=== PATIENT | female | born 2000 | race Caucasian/White ===

== ENCOUNTER 2025-04-23 22:41 | Emergency (ER) | payer OTHER, SELFPAY ==
--- NOTE | ~2025-04-23 | US_ITS ---
US OB <= 14 weeks fetus Ordering provider: Yohannes Patino MD History: . threatened miscarriage . Comparison: None. Technique: Transabdominal ultrasound of the pelvis (Doppler ultrasound interrogation techniques used as needed for this exam.) FINDINGS: CERVIX: Normal. UTERUS: Measures 9.8x 6.3x 8.4 cm in length which is within normal limits and is anteverted. No myom etrial masses. ENDOMETRIUM: Thickened complex endometrium with no gestational sac or pole. CUL DE SAC: No free fluid. RIGHT OVARY: Normal in size measuring 3.6x 2.8x 2.3 cm. Normal echotexture. Doppler vascular flow pre sent. LEFT OVARY: Normal in size measuring 4.5x 2x 3.5 cm. Normal echotexture. Doppler vascular flow presen t. ADNEXA: Normal. No mass. IMPRESSION: Thickened complex endometrium with no gestational sac or pole. The differential includes missed versus early . Clinical and B units correlation advised. Otherwise, normal pelvic ultrasound. Reviewed, dictated and finalized at location A. IMPRESSION: Thickened complex endometrium with no gestational sac or pole. The differ ential includes missed versus early . Clinical and B units correlation advised. Otherwise, normal pelvic ultrasound.
--- NOTE | 2025-04-23 22:50 | PC.NURSE ---
Pt. to ultrasound.
[2025-04-23 23:12] VITALS: BP 105/70; PULSE 83; RESP 16; TEMP 36.9; O2SAT 99
--- OUTSIDE RECORDS SUMMARY | 2025-04-23 23:28 | XMS_ITS | Referral Summary ---
Author Organization [facility] Address [address] [place] [address] Care Team Providers Care Medical Device Assembler Name Role Phone Paxton Mercado MD, Rogelio Veronica Primary Care Provid er Cody Aquino MD Unavailable [phone] Allergies No known active allergies Medications meclizine (ANTIVERT) 25 mg tablet Take 1 tablet (25 mg total) by mouth 3 (three) times a day as needed for dizziness 30 tablet 1 Active methocarbamoL (ROBAXIN) 500 mg tablet Take 1 tablet (500 mg total) by mouth nightly 30 tablet 1 1 Active celecoxib (CeleBREX) 100 mg capsule TAKE 1 CAPSULE(100 MG) BY MOUTH DAILY 30 capsule 1 2 Active gabapentin (NEURONTIN) 100 mg capsule TAKE 2 CAPSULES(200 MG) BY MOUTH EVERY NIGHT 60 capsule 3 3 Active Active Problems Problem Noted Date Diagnosed Date Rash and nonspecific skin eruption 11/29/2022 Assessment & Plan (11/29/2022 9:44 AM EMERGENCY CARE TECH): Recommend dermatology appointment for scaling within scalp. She has tried otc shampoos and topicals but continues to have burning sensation with flaking. Chronic back pain 01/12/2022 Overview (11/30/2022): 04/2022 labs: AVISE c1q21 (low+), C3 90, C4 14 01/12/2022 labs: C3 74, C4 12, normal Pr:Cr, trace blood in UA, neg HLA-B27, neg AVISE 11/2022 XR: -Lspine: DDD at L5-S1 -SI joints: narrowing bilateral SI joints without inflammatory changes Assessment & Plan (11/29/2022 9:43 AM EMERGENCY CARE TECH): Notes improvement in low back pain with starting gabapentin. Has not obtain previous xrays or gone to PT. Still with ttp of lower lumbar region. Encouraged her to obtain Xrays at minimal to have baseline imaging - still question possible GI mediated vs spondyloarthritis inflammatory back pain, joseph with scaling present within scalp. She may benefit with PT as well. Assessment & Plan (08/02/2022 2:44 PM CDT): Joint symptoms unchanged - right lower back pain still present questionably radiating around right aside of abdomen. Hands/feet ache. No benefit with celebrex 100mg nightly. Reports continued poor sleep. Saw GI with colonoscopy that was reportedly normal and diagnosed with IBS. Did not obtain XRs from last visit. No synovitis on exam with ttp over right SI/iliac crest region. Will reprint orders for lumbar and SI joint imaging. Discussed that obtaining an MRI of her lumbar spine would not be possible without first obtaining x-rays and going to PT - she agreed to try PT. Return in 4 months. Sooner if needed. Seen with Dr. Aquino. Assessment & Plan (01/12/2022 12:30 PM EMERGENCY CARE TECH): Continues to have right midback pain that worsens with any activity. Unable to describe symptoms well - poor historian of timeline of symptoms/events and descriptive adjectives. Also reports continuation of intermittent episodes of blood in her stool with chronic diarrhea. Unable to see the GI doctor due to an illness. There is ttp of the right SI joint and right upper midback over the paraspinal muscles that wraps anteriorly to the RLQ. Minimal scattered joint tenderness on exam without obvious synovitis. Does have pain at the origin of the left plantar fascia. There is a potential she could have an IBD vs spondyloarthritis given the back pain and GI symptoms, although her back pain does not sound inflammatory in nature. Does not appear to have a CTD such as lupus based on prior negative serologies and lack of synovitis/concerning symptoms. Has not started PT and would recommend for back pain. Will recheck appropriate serologies and lumbar spine/SI joint radiographs. Discussed potentially trying celebrex 100mg once daily for joint pain but cautioned with her GI symptoms she may discontinue if it upsets her stomach or worsens symptoms. Will provide plantar fasciitis stretching exercises. Would also recommend increasing Tylenol to 1300mg BID. Return in [address] Aquino. Dyspnea 01/12/2022 Assessment & Plan (01/12/2022 12:28 PM EMERGENCY CARE TECH): Easily becomes short of breath with simply activities. No longer running. Will obtain PFTs for further evaluation. Abdominal bloating associated with menstruation 09/30/2021 Assessment & Plan (09/30/2021 9:43 PM EMERGENCY CARE TECH): Worsening symptoms of abdominal bloating/pressure with her menstrual cycle. Does not have a Senior Wind Turbine Technician and is not on a control medication. She has an identical sister with PCOS. Provided name of Senior Wind Turbine Technician practice for patient to call. Dizziness 08/05/2021 Assessment & Plan (09/30/2021 9:38 PM EMERGENCY CARE TECH): Notes vertigo symptoms resolved after use of meclizine. Did not go to ENT. Assessment & Plan (08/05/2021 8:19 PM CDT): Reports new onset dizziness starting last with no viral prodrome.Any rapid movement of head induced her symptoms. At that time she was taking 60mg cymbalta but had stopped flexeril. Experienced multiple episodes of emesis Tuesday and stopped cymbalta as she could not eat. Did not seek UC or ER. Called PCP and was advised to follow up with network account manager (?) - no anti-emetic was sent in. Negative Almas Hallpike on exam. Cannot rule out vestibular cause of her dizziness. Will send in 25mg meclizine TID prn at this time to help with symptom control. Recommend ENT for further work up and will provide PT vestibular rehab referral as well. Provided orders for basic labs to ensure no dehydration/inflammatory issues present. These symptoms are not related to her fibromyalgia. Fibromyalgia 04/27/2021 Overview (05/06/2021): 04/2021 labs: AVISE C1q 21 (low+), C3 90, C4 14 Assessment & Plan (11/29/2022 9:41 AM EMERGENCY CARE TECH): Began 100mg gabapentin qhs after last visit with initial improvement in sleep but notes this has worsened again. Does report decreased daytime myalgia and back pain has lessened with use of gabapentin. Tried/failed cymbalta, amitriptyline and methocarbamol. Memory/brain fog is terrible. Still with 9/18 FM trigger points on exam. Will have her increase to 200mg gabapentin qhs and call in 4 weeks with update in symptoms. Will avoid daytime dose at this time. Assessment & Plan (08/02/2022 2:41 PM CDT): Tried/failed cymbalta, amitriptyline and methocarbamol. Memory/brain fog is terrible. 9/18 FM trigger points on exam. Discussed trial of low dose 100mg gabapentin qhs and reviewed the potential side effects of the medication, including but not limited to somnolence, dizziness. She was amenable to trying the medication. Will send to pharmacy. Assessment & Plan (09/30/2021 9:41 PM EMERGENCY CARE TECH): Reports worsening myalgias/arthralgias. Taking 600-800mg ibuprofen/advil up to TID without noted benefit. Headaches worsening. Would like to restart cymbalta 30mg as she felt her symptoms were better controlled. 17/18 FM trigger points present on exam. Will restart cymbalta 30mg once daily in the AM x 7-10 days and if tolerating and able to sleep will go to BID dosing. Provided PT referral for fibromyalgia pain program and encouraged her to inquire about using a TENs unit. Will also send in 500mg methocarbamol qhs due to nightly muscle spasms and difficulty sleeping. Would still recommend follow up with neurology for various symptoms. Return in [address] Aquino. Assessment & Plan (08/05/2021 8:45 PM CDT): Reports no benefit with flexeril 10mg qhs. Did notice improvement in joint symptoms on 60mg cymbalta (she was increased 2 weeks ago from 30mg daily) but reports increased difficulty falling asleep despite switching to AM dosing. Continues to have moderate myalgia complaints and recurrent flares of fatigue, chills, diffuse pain. Would not recommend pursuing another fibromyalgia medication at this time until her current dizziness is resolved as most medications have a potential side effect of dizziness. In the future would consider amitriptyline 10mg qhs and a referral to sleep specialist. Assessment & Plan (05/07/2021 1:02 PM CDT): Ms. Hoyt is a 20yo female with PMH of meningitis (2017) who presents for further evaluation of her right lower back pain worsening over past 6 months. Pain occurs episodically, lasting 4-5 days with 2-3 weeks of relatively normal symptoms in between the flares. During these flares she has moderate fatigue complaints. Also notes migrating peripheral joint pain that lasts for a few hours before resolving. Denies joint stiffness or swelling. Minimal benefit with NSAIDs and heat worsens back pain. Reports occasional rashes, watery eyes, whitening of the fingers in winter, aphthous ulcers, diarrhea 2x/week with intermittent blood present and migraines. No contributory FH aside from paternal GM and great GM with fibromyalgia. A recent autoantibody panel was negative for ENE, RF, CCP, Scl70. Multiple tender points on exam without synovitis. She did not have a scl70 antibody present on repeat testing and does not have symptoms concerning for scleroderma. At this time her symptoms of brain fog, diffuse tenderness, migraines, GI symptoms and moderate-severe fatigue along with her physical exam findings correlate more with a fibromyalgia diagnosis. Discussed initiating cymbalta 30mg once daily to see if she has any benefit over time and reviewed the potential adverse effects of the medication including, but not limited to, nausea, sicca sx, headache, somnolence, and/or fatigue. Recommended she follow up with her PCP within the next 4-6 weeks for continued management. She may require the full 60mg once daily dose. She should continue flexeril qhs, with increase to 10mg as 5mg was not offering any benefit. Additionally discussed the importance of good restorative sleep and exercise. Fibromyalgia treatment is multifaceted and medication alone may not be sufficient to control symptoms. Provided handout reviewing the diagnosis as well as Mendel Chi. She is welcome to return if she develops any additional symptoms concerning for an autoimmune disease - explained that a one time work up does not exclude a future autoimmune disease. Seen with Dr. Aquino. Assessment & Plan (04/27/2021 9:03 PM CDT): Ms. Hoyt is a 20yo female with PMH of meningitis (2017) who presents for further evaluation of her right lower back pain worsening over past 6 months. Pain occurs episodically, lasting 4-5 days with 2-3 weeks of relatively normal symptoms in between the flares. During these flares she has moderate fatigue complaints. Also notes migrating peripheral joint pain that lasts for a few hours before resolving. Denies joint stiffness or swelling. Minimal benefit with NSAIDs and heat worsens back pain. Reports occasional rashes, watery eyes, whitening of the fingers in winter, aphthous ulcers, diarrhea 2x/week with intermittent blood present and migraines. No contributory FH aside from paternal GM and great GM with fibromyalgia. No synovitis on exam with ttp of the left elbow and ankle and ttp of the right flank region. Do not suspect her +scl70 lab is contributing to her current symptoms and she does not appear to have symptoms concerning for scleroderma. However will perform appropriate serologies for further assessment. There is some mild concern for early development of fibromyalgia. Suggested a trial of 5mg flexeril qhs for lower back pain and patient was amenable. - will send script to pharmacy. Return in [address] Aquino. Memory impairment 07/12/2017 Cephalalgia 07/12/2017 Fatigue 07/12/2017 Chronic pain 07/12/2017 Headache following lumbar puncture 07/05/2017 Social History Tobacco Use Types Packs/Day Years Used Date Smoking Tobacco: Never Personal Safety Answer Date Recorded Getting School Help Needed Not on file 01/08 Comments Unknown Sex and Gender Information Value Date Recorded Sex Assigned at Not on file Legal Sex Female 1:29 AM EMERGENCY CARE TECH Gender Identity Not on file Sexual Orientation Not on file Last Filed Vital Signs Vital Sign Reading Time Taken Comments Blood Pressure 110/68 11/29/2022 8:55 AM EMERGENCY CARE TECH Pulse 89 11/29/2022 8:55 AM EMERGENCY CARE TECH Temperature 36.7 C (98.1 F) 01/12/2022 8:35 AM EMERGENCY CARE TECH Respiratory Rate - - Oxygen Saturation 98% 11/29/2022 8:55 AM EMERGENCY CARE TECH Inhaled Oxygen Concentration - - Weight 51 kg (112 lb 6.4 oz) 11/29/2022 8:55 AM EMERGENCY CARE TECH Height 154.9 cm (5' 1) 11/29/2022 8:55 AM EMERGENCY CARE TECH Body Mass Index 21.24 11/29/2022 8:55 AM EMERGENCY CARE TECH Plan of Treatment Not on file Insurance ANTHEM ACCESS CHOICE [facility] CHOICE PLUS ANTHEM ACCESS CHOICE Care Teams Medical Device Assembler Relationship Specialty Start [place] [id number] [address] [address] PCP - General Family Medicine 04/15/21 Cody Aquino MD [address] [place] [address] Consulting Physician Rheumatology 04/15/21
--- OUTSIDE RECORDS SUMMARY | 2025-04-23 23:28 | XMS_ITS | Encounter Summary ---
Author Organization [facility] Address [address] [place] [address] Care Team Providers Care Professor Of Biological Sciences Name Role Phone Mikael Molina MD Primary Care Provider [phone] Encounter Details Date Type Department Care Team (Late st Contact Info) Description 01/06/2022 Telephone [facility] [address] [place] [address] Arnold Wang MD [facility] [address] Social History Tobacco Use Types Packs/Day Years Used Date Smoking Tobacco: Never Smokeless Tobacco: Never Alcohol Use Standard Drinks/Week Comments Not Currently 0 (1 standard drink = 0.6 oz pur e alcohol) Comments No Sex and Gender Information Value Date Recorded Sex Assigned at Not on file Legal Sex Female 2:37 PM CRM TECHNICAL LEAD Gender Identity Not on file Sexual Orientation Not on file documented as of this encounter Miscellaneous Notes * Telephone Encounter - Nayeli Antunez - 01/06/2022 9:55 AM CST Current Provider name:SUN Reason for call: Pt would like to switch provider's. She no longer wants to be seen by Dr. Wang. Patient Call Back number: [phone] TECHNICAL LEAD documented in this encounter Plan of Treatment Not on file documented as of this encounter Visit Diagnoses Not on filedocumented in this encounter Care Teams Professor Of Biological Sciences Relationship Specialty Start Date End Date Mikael Molina MD PCP - General 09/25/19 documented as of this encounter
--- OUTSIDE RECORDS SUMMARY | 2025-04-23 23:29 | XMS_ITS | Clinical Summary ---
Author Organization [facility] Address [address] [place] [address] Care Team Providers Care Home Stereo Equipment Installer Name Role Phone Paxton Mercado MD, Rogelio Veronica Primary Care Provid er Cody Aquino MD Unavailable [phone] Allergies No known active allergies Medications [...] 11/29/2022 Assessment & Plan (11/29/2022 9:44 AM TOWERMAN): Recommend dermatology appointment for scaling within scalp. [...] changes Assessment & Plan (11/29/2022 9:43 AM TOWERMAN): Notes improvement in low back pain with [...] Aquino. Assessment & Plan (01/12/2022 12:30 PM TOWERMAN): Continues to have right midback pain that [...] 01/12/2022 Assessment & Plan (01/12/2022 12:28 PM TOWERMAN): Easily becomes short of breath with simply activities. No longer running. Will obtain PFTs for further evaluation. Abdominal bloating associated with menstruation 09/30/2021 Assessment & Plan (09/30/2021 9:43 PM TOWERMAN): Worsening symptoms of abdominal bloating/pressure with her menstrual cycle. Does not have a Autocutter and is not on a control medication. She has an identical sister with PCOS. Provided name of Autocutter practice for patient to call. Dizziness 08/05/2021 Assessment & Plan (09/30/2021 9:38 PM TOWERMAN): Notes vertigo symptoms resolved after use of [...] and was advised to follow up with petrophysicist (?) - no anti-emetic was sent in. [...] 14 Assessment & Plan (11/29/2022 9:41 AM TOWERMAN): Began 100mg gabapentin qhs after last visit [...] pharmacy. Assessment & Plan (09/30/2021 9:41 PM TOWERMAN): Reports worsening myalgias/arthralgias. Taking 600-800mg ibuprofen/advil up [...] pain 07/12/2017 Headache following lumbar puncture 07/05/2017 Medical History Medical History Date Comments Anorexia Poor appetite - (Added by TW Conv) Chest pain on breathing Painful breathing - (Added by TW Conv) Shortness of breath Shortness of breath at rest - (Added by TW Conv) Personal history of other di seases of the musculoskeletal system and connective tissue History of muscle pain - (Ad ded by TW Conv) Personal history of other sp ecified conditions History of weakness - (Added by TW Conv) Family History Medical History Relation Name Comments Irritable bowel syndrome Brother Fam donovan history of irritable bowel syndrome - (Added by TW Conv) Colon cancer Father Family history of colorectal cancer - (Added by TW Conv) Lung cancer Maternal Grandfather Family history of lung cancer - (Added by TW Conv) Thyroid disease Maternal Grandfather Fami ly history of thyroid disease - (Added by TW Conv) Diabetes Maternal Grandmother Family history of diabetes mellitus - (Added by TW Conv) Thyroid disease Maternal Grandmother Fami ly history of thyroid disease - (Added by TW Conv) Hyperlipidemia Paternal Grandfather Famil y history of hyperlipidemia - (Added by TW Conv) Hypertension Paternal Grandfather Family history of hypertension - (Added by TW Conv) Relation Name Status Comments Brother Father Maternal Grandfather Maternal Grandmother Paternal Grandfather Social History Tobacco Use Types Packs/Day Years Used Date Smoking Tobacco: Never Personal Safety Answer Date Recorded Getting School Help Needed Not on file 01/08 Comments Unknown Sex and Gender Information Value Date Recorded Sex Assigned at Not on file Legal Sex Female 1:29 AM TOWERMAN Gender Identity Not on file Sexual Orientation Not on file Obstetrics History Last Filed Vital Signs Vital Sign Reading Time Taken Comments Blood Pressure 110/68 11/29/2022 8:55 AM TOWERMAN Pulse 89 11/29/2022 8:55 AM TOWERMAN Temperature 36.7 C (98.1 F) 01/12/2022 8:35 AM TOWERMAN Respiratory Rate - - Oxygen Saturation 98% 11/29/2022 8:55 AM TOWERMAN Inhaled Oxygen Concentration - - Weight 51 kg (112 lb 6.4 oz) 11/29/2022 8:55 AM TOWERMAN Height 154.9 cm (5' 1) 11/29/2022 8:55 AM TOWERMAN Body Mass Index 21.24 11/29/2022 8:55 AM TOWERMAN Plan of Treatment Health Maintenance Due Date Last Done Comments Cervical Cancer Screening 1998 Depression Screening 1998 Hepatitis C Screening 1998 Varicella Vaccines (2 of 2 - 2-dose childhood series) 09/02/2009 02/01/2000 DTaP/Tdap/Td Vaccine (2 - Tdap) 2009 2 HPV Vaccines (1 - 3-dose series) 2013 Regular Well Visit/Exam 18-64 2016 Influenza Vaccine (Season Ended) 2025 08/05/20 09 Hepatitis B Screening Completed 09/25/2002 Pneumococcal vaccine <65 Aged Out No longer eligible based on patient's age to complete this topic Insurance ANTHEM ACCESS CHOICE [facility] CHOICE PLUS ANTHEM ACCESS CHOICE Care Teams Home Stereo Equipment Installer Relationship Specialty [place] [address] [address] [address] PCP - General Family Medicine 04/15/21 Cody Aquino MD [address] [place] [address] Consulting Physician Rheumatology 04/15/21
--- OUTSIDE RECORDS SUMMARY | 2025-04-23 23:29 | XMS_ITS | Clinical Summary ---
Author Organization [facility] Address [address] [place] [address] Care Team Providers Care Automated Cutting Machine Operator Name Role Phone Mikael Molina MD Primary Care Provider Source Comments [facility],non-owned Affiliates and Associated Physician Practices is amultiple site organization consisting of ambulatory clinics and hospital sitesin [place], [place], [place] and [place]. This disclosure is being madepursuant to the Care Everywhere program and may not contain all information available regarding this patient. Last updated 18.[employer] [facility] Allergies No known active allergies Medications * Be aware that medications may not be up to date on this document. Alwaysverify current medications with the patient. No known medications Active Problems No known active problems Family History Medical History Relation Name Comments Cancer - Colon Father Relation Name Status Comments Father Social History Tobacco Use Types Packs/Day Years Used Date Smoking Tobacco: Never Smokeless Tobacco: Never Alcohol Use Standard Drinks/Week Comments Not Currently 0 (1 standard drink = 0.6 oz pur e alcohol) Comments No Sex and Gender Information Value Date Recorded Sex Assigned at Not on file Legal Sex Female 2:37 PM OUTBOUND TELEMARKETER Gender Identity Not on file Sexual Orientation Not on file Last Filed Vital Signs Vital Sign Reading Time Taken Comments Blood Pressure 100/60 09/28/2020 10:58 AM OUTBOUND TELEMARKETER Pulse 100 09/28/2020 10:58 AM OUTBOUND TELEMARKETER Temperature 37.3 C (99.2 F) 09/28/2020 10:58 AM OUTBOUND TELEMARKETER Respiratory Rate 18 09/28/2020 10:58 AM OUTBOUND TELEMARKETER Oxygen Saturation 97% 09/28/2020 10:58 AM OUTBOUND TELEMARKETER Inhaled Oxygen Concentration - - Weight 49.9 kg (110 lb) 09/28/2020 10:58 AM OUTBOUND TELEMARKETER Height 154.9 cm (5' 1) 09/28/2020 10:58 AM OUTBOUND TELEMARKETER Body Mass Index 20.78 09/28/2020 10:58 AM OUTBOUND TELEMARKETER Plan of Treatment Health Maintenance Due Date Last Done Comments HIV SCREENING 2013 HPV VACCINE (1 - 3-dose series) 2013 HEPATITIS C SCREENING 10/01/2016 DTAP/TDAP/TD VACCINES (1 - Tdap) 2017 HEPATITIS B VACCINE (1 of 3 - 19+ 3-dose series) 2017 COVID-19 VACCINE (1 - 2023-2 5 season) 2024 DEPRESSION SCREENING 11/14/2024 INFLUENZA VACCINE (Season Ended) 2025 ZOSTER VACCINE (1 of 2) 2048 HIB VACCINE Aged Out No longer eligi ble based on patient's age to complete this topic MENINGOCOCCAL (Group B) VACC INE SHARED DECISION-MAKING Aged Out No longer eligibl e based on patient's age to complete this topic MENINGOCOCCAL GROUPS A/C/Y/W VACCINE Aged Out No longer eligible b ased on patient's age to complete this topic PNEUMOCOCCAL VACCINE Aged Out No long er eligible based on patient's age to complete this topic Insurance [facility] Care Teams Automated Cutting Machine Operator Relationship Specialty Start Date End Date Mikael Molina MD PCP - General 09/25/19
--- NOTE | 2025-04-23 23:39 | ED.FEMALEGU ---
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 Patient states that she had an a few days ago and was administered an oral pill which she took yesterday morning and vaginal medication which she took 6 hours later. Patient started bleeding this morning and understands that this is normal as she is passing the products of conceptions, however, her boyfriend prompted her to come to the emergency department for further evaluation. Patient did inform me that she did not tell her boyfriend that she had an and wants to keep this information from him. I did inform her that since these are her wishes I am happy to abide by them. She is unsure of her blood type. Related Data Allergies Allergy/AdvReac Type Severity Reaction Status Date / Time No Known Allergies Allergy Verified 04/23/25 22:43 Review of Systems Review of Systems: All systems are reviewed and are negative unless stated otherwise in the HPI. Exam Narrative: General: Alert, awake, afebrile, in no acute distress. HEENT: PERRL, no rhinorrhea, no post nasal drip, oropharynx clear. Neck: Trachea midline, no JVD, no lymphadenopathy. Cardiovascular: Regular rate and rhythm, no murmurs, rubs or gallops, no peripheral edema. Respiratory: Clear to auscultation bilaterally, no tachypnea, no wheezing, no rhonchi, no rubs, no respiratory distress. Abdomen: Soft, nontender, nondistended, no rebound, no guarding, no peritoneal signs. Musculoskeletal: No joint swelling or deformity, normal muscle tone. Skin: No rashes or petechia, no signs of infection. Psychiatric: Alert and oriented, normal behavior and judgment for situation. Neurological: Alert and oriented to person, place, and time. Follows all commands. No focal deficits, speech is clear and fluent. Course Vital Signs Vital signs: Vital Signs Temperature 98.5 F 04/23/25 23:12 Pulse Rate 83 04/23/25 23:12 Respiratory Rate 16 04/23/25 23:12 Blood Pressure 105/70 04/23/25 23:12 Pulse Oximetry 99 04/23/25 23:12 Oxygen Delivery Room Air 04/23/25 23:12 Temperature 98.5 F 04/23/25 23:12 Pulse Rate 83 04/23/25 23:12 Respiratory Rate 16 04/23/25 23:12 Blood Pressure 105/70 04/23/25 23:12 Pulse Oximetry 99 04/23/25 23:12 Oxygen Delivery Room Air 04/23/25 23:12 MDM - Female Genitourinary MDM Narrative Medical decision making narrative: The patient was evaluated by myself in the emergency department. History is obtained from patient who is an independent historian and physical exam was performed. External medical records were reviewed at this time. IV was established and pertinent tests were ordered. Laboratory results obtained revealing no acute process. Imaging studies obtained included pelvic ultrasound OB with transvaginal which was independently interpreted by me revealing: IMPRESSION: Thickened complex endometrium with no gestational sac or pole. The differential includes missed versus early . Clinical and B units correlation advised. Otherwise, normal pelvic ultrasound. Differential diagnosis considerations include active miscarriage/threatened miscarriage/retained products of conception. Comorbidities impacting this visit include none. I have evaluated and discussed social determinants of health with the patient that could potentially impact subsequent diagnosis and treatment plans. On repeat assessment of the patient, reevaluation revealed that the patient is doing well and is in no acute distress. Patient symptoms have improved since she arrived to our emergency department. Repeat vital signs were all reviewed and noted to be stable. Differential diagnosis and treatment plan were discussed with the patient at bedside. Patient agrees with discussion and after shared medical decision making agrees with discharge. All questions were answered to the patient's satisfaction. Patient will follow up with OB in 3-5 days. Patient was provided with strict return precautions and instructed to return to the emergency department if any new or worsening symptoms develop. The patient was discharged in stable condition. Lab Data 04/23/25 23:50 04/23/25 23:50 Labs: Lab Results 04/23/25 Range/Units 23:50 WBC 10.2 H (4.5-10.0) K/mm3 RBC 4.14 L (4.2-5.4) M/mm3 Hgb 11.7 L (12.0-15.0) g/dL Hct 35.3 L (37.0-47.0) % MCV 85.3 (80-100) fl MCH 28.3 (26-34) pg MCHC 33.1 (32-36) g/dl RDW 12.2 (11.5-14.5) % Plt Count 285 (150-375) k/mm3 MPV 10.0 (7.4-10.4) fl Immature Gran % (Auto) 2.3 H (0-0.5) % Neut % (Auto) 53.3 (45.5-73.1) % Lymph % (Auto) 33.9 (18.3-44.2) % [place] % (Auto) 8.5 (2.6-8.5) % Eos % (Auto) 1.1 (0-4.4) % Baso % (Auto) 0.9 (0.2-1.2) % Lymph # (Auto) 3.46 H (0.9-3.2) K/mm3 [place] # (Auto) 0.9 H (0.1-0.6) K/mm3 Eos # (Auto) 0.1 (0-0.3) K/mm3 Baso # (Auto) 0.1 (0.0-0.1) K/mm3 Abs Immat Gran (auto) 0.23 H (0.00-0.031) K/mm3 Absolute Neuts (auto) 5.5 (1.3-6.7) K/mm3 Absolute Nucleated RBC 0.000 (0.0-0.012) K/mm3 Nucleated RBC % 0.0 (0.0-0.2) % Sodium 134 L (137-145) mmol/L Potassium 3.7 (3.4-5.0) mmol/L Chloride 103 (98-107) mmol/L Carbon Dioxide 27 (22-30) mmol/L Anion Gap 4 (4-12) mmol/L BUN 9 (7-17) mg/dL Creatinine 0.67 L (0.7-1.0) mg/dL Estim Creat Clear Calc 82 ml/min Estimated GFR > 60 (59 - ) Glucose 86 (65-110) mg/dL Calcium 8.9 (8.4-10.2) mg/dL Magnesium 2.0 (1.6-2.3) mg/dL Total Bilirubin 0.5 (0.2-1.3) mg/dL AST 46 H (14-36) U/L ALT 45 H (6-35) U/L Alkaline Phosphatase 43 (38-126) U/L Total Protein 6.6 (6.3-8.2) g/dL Albumin 4.1 (3.5-5.1) g/dL Lipase 129 (23-300) U/L Beta HCG, Quant 46560.00 mIU/ML Urine Color Yellow (Yellow) Urine Appearance Clear (Clear) Urine pH 6.5 (5.0-9.0) Ur Specific [place] 1.021 (1.001-1.035) Urine Protein Trace (Negative) mg/dL Urine Glucose (UA) Negative (Negative) mg/dL Urine Ketones Negative (Negative) mg/dL Ur Blood (Man) 3+ H (Negative) Urine Nitrate Negative (Negative) Urine Bilirubin Negative (Negative) Urine Urobilinogen 1.0 (<2.0) mg/dL Leukocyte Esterase Rfl Trace H (Negative) ANASTASIIA/UL Urine RBC >100 H (0-2) /hpf Urine WBC 6-10 H (0-3) /hpf Ur Squamous Epith Cells None seen (Few) /hpf Urine Bacteria None seen /hpf Urine Casts 0-2 Blood Type O Positive Antibody Screen Negative Screen Not Reportable Baby's Blood Type Not Reportable Baby's JESSICA Not Reportable Doses of RhIg Required 0 Discharge Plan Discharge Clinical Impression: Threatened miscarriage Patient Disposition: Home Condition: Improved Instructions: Antibiotic Form, Threatened Miscarriage (ED) Additional Instructions: Please follow-up with the dental intern provided to you today within the next 3-5 days. Your beta hCG level was today was 33,[phone]. You will need to have your beta hCG level re-checked for monitoring. Return to the emergency department if any new or worsening symptoms develop. Patient Language: Sudanese Follow-up/Referrals: Mono Brink MD [Physician] - 3 Days Time of Disposition: 01:05
[2025-04-24 00:14] LABS: Alanine Aminotransferase 45 U/L (6-35); Albumin Level 4.1 g/dL (3.5-5.1); Alkaline Phosphatase 43 U/L (38-126); Anion Gap 4 mmol/L (4-12); Aspartate Amino Transferase 46 U/L (14-36); Bilirubin,Total 0.5 mg/dL (0.2-1.3); Blood Urea Nitrogen 9 mg/dL (7-17); Calcium 8.9 mg/dL (8.4-10.2); Carbon Dioxide 27 mmol/L (22-30); Chloride 103 mmol/L (98-107); Estimated CRCL calculation 82 ml/min; Estimated Glomerular Filt Rate > 60; Glucose 86 mg/dL (65-110); Lipase 129 U/L (23-300); Potassium 3.7 mmol/L (3.4-5.0); Sodium 134 mmol/L (137-145); Total Protein 6.6 g/dL (6.3-8.2)
[2025-04-24 00:24] LABS: Basophils Absolute Auto 0.1 K/mm3 (0.0-0.1); Basophils Percent Auto 0.9 % (0.2-1.2); Eosinophils Absolute Auto 0.1 K/mm3 (0-0.3); Eosinophils Percent Auto 1.1 % (0-4.4); Hematocrit 35.3 % (37.0-47.0); Hemoglobin 11.7 g/dL (12.0-15.0); Immature Granulocyte Absolute 0.23 K/mm3 (0.00-0.031); Immature Granulocyte Percent A 2.3 % (0-0.5); Lymphocytes Absolute Auto 3.46 K/mm3 (0.9-3.2); Lymphocytes Percent Auto 33.9 % (18.3-44.2); Mean Corpuscular HGB Conc 33.1 g/dl (32-36); Mean Corpuscular Hemoglobin 28.3 pg (26-34); Mean Corpuscular Volume 85.3 fl (80-100); Monocytes Absolute Auto 0.9 K/mm3 (0.1-0.6); Monocytes Percent Auto 8.5 % (2.6-8.5); Neutrophils Absolute Auto 5.5 K/mm3 (1.3-6.7); Neutrophils Percent Auto 53.3 % (45.5-73.1); Platelet Count Result 285 k/mm3 (150-375); Red Blood Count 4.14 M/mm3 (4.2-5.4); Red Cell Distribution Width 12.2 % (11.5-14.5); White Blood Count 10.2 K/mm3 (4.5-10.0)
[2025-04-24 00:57] LABS: Bacteria Urine None Seen /hpf; Non Pathogenic Casts 0-2; RBC Urine >100 /hpf (0-2); Squamous Epithelial Cell Urine None Seen /hpf (Few)
[2025-04-24 01:03] LABS: Add Urine Microscopic? YES; Appearance Urine Clear (Clear); Bilirubin Urine Negative (Negative); Blood Urine 3+ (Negative); Color Urine Yellow (Yellow); Glucose Urine UA Negative (Negative); Ketones Urine Negative (Negative); Leukocyte Esterase Ur Trace LEU/UL (Negative); Nitrate Urine Negative (Negative); Protein Urine Trace mg/dL (Negative); Specific Grav Ur 1.021 (1.001-1.035); pH Urine 6.5 (5.0-9.0)
[2025-04-24 01:15] VITALS: BP 105/65; PULSE 75; RESP 14; O2SAT 95
== END 2025-04-24 01:17 | disposition home or self-care (01) ==
PROVIDERS: Emergency Provider Emergency Medicine
DX: O20.0 Threatened abortion (principal); Z3A.01 Less than 8 weeks gestation of pregnancy
CPT/HCPCS: 36415; 76801; 80053; 81001; 83690; 83735; 84702; 85025; 85461; 86850; 86900; 86901; 87086; 99284